=== PATIENT | female | born 1950 | race Caucasian/White ===

== ENCOUNTER 2018-02-03 19:32 | Emergency (ER) | payer MEDICARE, OTHER ==
[~2018-02-03 19:32] MED LIST: ACTO35TA PO; ARIC5TAB PO; ARMO120T PO; CALC-137 PO; COUM2TAB PO; ESTR0.053 TD; ESZO3 PO; FIBECHW2 CHEW; FISH1000 PO; FLUO40CA PO; HYDR5TAB64 OR; IODINE PO; LORA1TAB PO; LORT5TAB PO; MAGN400 OR; PROG1CAP21 PO; SERO100T PO; STOO100C PO; VITA200017 OR; [UNRECOGNIZED DRUG - OTHER] PO
[2018-02-03 19:48] VITALS: BP 123/77; PULSE 94; RESP 16; TEMP 98.6; O2SAT 96
--- NOTE | 2018-02-03 20:06 | PD ---
HPI Chief Complaint: Altered Mental Status Time Seen by Provider: 20:06 Travel History International Travel<30 days: No Contact w/Intl Traveler<30days: No Traveled to known affect area: No History of Present Illness HPI 67-year-old female presents to the emergency department by private transportation the care of family for evaluation of mild altered mentation. No fall or injury. According to daughter who is at the bedside with the patient she has experienced episodes like this before related to either low blood count due to a GI bleed or due to urinary tract infection. Daughter actually noted symptoms yesterday that they were slightly worse today. Patient does complain of some dizziness but denies any black or tarry or bloody stools. Patient does complain of suprapubic pressure and urgency. No noted fever chills. Patient is unable to identify specific exacerbating or alleviating factors. Patient does not report chest pain palpitations shortness of breath referred neck jaw back shoulder arm pain does not report flank pain or hematuria does not report nausea vomiting or diarrhea constipation. Patient does not take a blood thinning agent. Discomfort with urination, 03/02. Patient has had some laryngitis cough congestion sinus drainage and some pill yellow-green sputum. No shortness of breath no wheezing. PFSH Past Medical History Narrative Medical Osteoarthritis anemia hypothyroidism asthma/COPD diminished hearing uterine cancer with hysterectomy bilateral salpingo-oophorectomy appendectomy gastric bypass Miguelina filter tonsillectomy adenoidectomy no tobacco use nursing notes reviewed medical record review Anemia: Yes Arthritis: Yes Asthma: Yes Cancer: Yes (UTERUS) Cardiovascular Problems: Yes Chemotherapy: No COPD: Yes Diminished Hearing: Yes ([place]) Endocrine: Yes Gastrointestinal Disorders: Yes Genitourinary: No Headaches: Yes Hypertension: Yes (HX: RESOLVED GASTRIC BYPASS) Immune Disorder: No Implanted Vascular Access Dvce: Yes Musculoskeletal: Yes Neurologic: Yes Psychiatric: Yes (CLAUSTRAPHOBIA) Reproductive: No Respiratory: Yes Immunizations Current: Yes Radiation Therapy: No Thyroid Disease: Yes Past Surgical History Abdominal Surgery: Yes (GASTRIC BYPASS, APPY) Body Medical Devices: MIGUELINA FILTER Gynecologic Surgery: Yes (TAHBSO) Oral Surgery: Yes (T & A) Other Surgery: Yes (COLON RESECTION) Social History Alcohol Use: No Tobacco Use: No Substance Use: No Allergies-Medications (Allergen,Severity, Reaction): Coded Allergies: clarithromycin (Verified Allergy, Severe, 02/03/18) Reported Meds & Prescriptions Reported Meds & Active Scripts Active Reported Tylenol (Acetaminophen) 325 Mg Tab 325 Mg PO Q6H PRN Memantine 10 Mg Tab 10 Mg PO BID Omeprazole 20 Mg Tab 20 Mg PO DAILY Levothyroxine (Levothyroxine Sodium) 50 Mcg Tab 50 Mcg PO DAILY Fish Oil + D3 (Fish Oil-Cholecalciferol) 1,200-1,000 Mg-Unit Cap 1 Cap PO DAILY Sertraline (Sertraline HCl) 50 Mg Tab 50 Mg PO DAILY Morphine ER (Morphine Sulfate) 15 Mg Tab 15 Mg PO BID Narrative Medication advil Review of Systems Except as stated in HPI: all other systems reviewed are Neg General / Constitutional: No: Fever, Chills HENT: Positive: Congestion, Other (sinus pressure and drainage), No: Sore Throat Cardiovascular: No: Chest Pain or Discomfort, Palpitations, Syncope Respiratory: Positive: Cough ("pale green sputum"), No: Shortness of Breath Gastrointestinal: Positive: Abdominal Pain (suprapubic), No: Nausea, Vomiting, Diarrhea Genitourinary: Positive: Dysuria, No: Hematuria Musculoskeletal: Positive: Other (left humerus fx 5 weeks old), No: Pain Skin: Positive Other (per daughter --resolving buttock 'pressure sore' no ulceration), No Rash Neurologic: Positive: Weakness, Dizziness, Change in Mentation, No: Headache, Slurred Speech Psychiatric: No: Anxiety Endocrine: No: Polyuria Hematologic/Lymphatic: No: Lymph Node Enlargement Physical Exam Narrative GENERAL: Well-developed well-nourished female no acute distress no respiratory distress, mild hoarseness, no stridor. SKIN: Warm and dry. HEAD: Normocephalic. EYES: No scleral icterus. No injection or drainage. No conjunctival pallor. NECK: Supple, trachea midline. No JVD or lymphadenopathy. CARDIOVASCULAR: Regular rate and rhythm without murmurs, gallops, or rubs. RESPIRATORY: Breath sounds equal bilaterally. No accessory muscle use. GASTROINTESTINAL: Abdomen soft, non-tender, no guarding no rebound, nondistended. MUSCULOSKELETAL: No cyanosis, or edema. BACK: Nontender without obvious deformity. No CVA tenderness. Data Data Last Documented VS Vital Signs Date Time Temp Pulse Resp B/P (MAP) Pulse Ox O2 Delivery O2 Flow Rate FiO2 02/03/18 23:20 02/03/18 20:46 98 Room Air 02/03/18 19:48 98.6 94 16 Orders Orders Electrocardiogram (02/03/18 20:06) Complete Blood Count With Diff (02/03/18 20:06) Comprehensive Metabolic Panel (02/03/18 20:06) Prothrombin Time / Inr (Pt) (02/03/18 20:06) Troponin I (02/03/18 20:06) Thyroid Stimulating Hormone (02/03/18 20:06) Urinalysis - C+S If Indicated (02/03/18 20:06) Chest, Single Ap (02/03/18 20:06) Ct Brain W/O Iv Contrast(Rout) (02/03/18 20:06) Blood Glucose (02/03/18 20:06) Ecg Monitoring (02/03/18 20:06) Iv Access Insert/Monitor (02/03/18 20:06) Oximetry (02/03/18 20:06) Sodium Chloride 0.9% Flush (Ns Flush) (02/03/18 20:15) Blood Culture (02/03/18 20:53) Lactic Acid (02/03/18 20:53) Sodium Chlorid 0.9% 500 Ml Inj (Ns 500 M (02/03/18 21:00) Urine Culture (02/03/18 20:14) Ceftriaxone Inj (Rocephin Inj) (02/03/18 21:15) Ed Discharge Order (02/03/18 23:16) Ciprofloxacin (Cipro) (02/03/18 23:30) Labs Laboratory Tests Test 02/03/18 20:14 02/03/18 21:03 White Blood Count 19.7 TH/MM3 Red Blood Count 4.52 MIL/MM3 Hemoglobin 12.6 GM/DL Hematocrit 39.9 % Mean Corpuscular Volume 88.4 FL Mean Corpuscular Hemoglobin 27.8 PG Mean Corpuscular Hemoglobin Concent 31.5 % Red Cell Distribution Width 21.0 % Platelet Count 248 TH/MM3 Mean Platelet Volume 8.5 FL Neutrophils (%) (Auto) 79.7 % Lymphocytes (%) (Auto) 9.8 % Monocytes (%) (Auto) 9.5 % Eosinophils (%) (Auto) 0.4 % Basophils (%) (Auto) 0.6 % Neutrophils # (Auto) 15.7 TH/MM3 Lymphocytes # (Auto) 1.9 TH/MM3 Monocytes # (Auto) 1.9 TH/MM3 Eosinophils # (Auto) 0.1 TH/MM3 Basophils # (Auto) 0.1 TH/MM3 CBC Comment DIFF FINAL Differential Comment Prothrombin Time 11.4 SEC Prothromb Time International Ratio 1.1 RATIO Urine Color YELLOW Urine Turbidity CLEAR Urine pH 6.5 Urine Specific [place] 1.034 Urine Protein 30 mg/dL Urine Glucose (UA) NEG mg/dL Urine Ketones NEG mg/dL Urine Occult Blood SMALL Urine Nitrite NEG Urine Bilirubin NEG Urine Urobilinogen LESS THAN 2.0 MG/DL Urine Leukocyte Esterase SMALL Urine RBC 98 /hpf Urine WBC 5 /hpf Urine Bacteria FEW /hpf Urine Mucus FEW /lpf Microscopic Urinalysis Comment CATH-CULTURE IND Blood Urea Nitrogen 14 MG/DL Creatinine 0.83 MG/DL Random Glucose 67 MG/DL Total Protein 7.0 GM/DL Albumin 3.3 GM/DL Calcium Level 8.8 MG/DL Alkaline Phosphatase 89 U/L Aspartate Amino Transf (AST/SGOT) 56 U/L Alanine Aminotransferase (ALT/SGPT) 45 U/L Total Bilirubin 0.3 MG/DL Sodium Level 138 MEQ/L Potassium Level 3.9 MEQ/L Chloride Level 109 MEQ/L Carbon Dioxide Level 16.1 MEQ/L Anion Gap 13 MEQ/L Estimat Glomerular Filtration Rate 69 ML/MIN Troponin I LESS THAN 0.02 NG/ML Thyroid Stimulating Hormone 3rd Gen 0.195 uIU/ML Lactic Acid Level 0.7 mmol/L MDM Medical Decision Making Medical Screen Exam Complete: Yes Emergency Medical Condition: Yes Medical Record Reviewed: Yes Interpretation(s) UA: few bacteria, positive WBC's; positive leuk esterase =cx indicated EKG: Normal sinus rhythm rate 85 left axis deviation no acute ST elevation nonspecific ST-T changes noted Last Impressions Head CT 02/03/182005 Signed Impressions: CONCLUSION: 1. No acute findings. Chest X-Ray 02/03/182005 Signed Impressions: CONCLUSION: Negative examination. CBC & BMP Diagram 02/03/18 20:14 Total Protein 7.0, Albumin 3.3 L, Calcium Level 8.8, Alkaline Phosphatase 89, Aspartate Amino Transf (AST/SGOT) 56 H, Alanine Aminotransferase (ALT/SGPT) 45, Total Bilirubin 0.3 Vital Signs Date Time Temp Pulse Resp B/P (MAP) Pulse Ox O2 Delivery O2 Flow Rate FiO2 02/03/18 23:20 02/03/18 20:46 98 Room Air 02/03/18 19:48 98.6 94 16 123/77 (92) 96 Room Air LACTIC ACID: 0.7, not elevated Differential Diagnosis AMS, anemia, UTI, URI, bronchitis, sinusitis, pneumonia, sepsis Narrative Course Patient placed on monitor technician with continuous pulse oximetry IV access obtained specimens collected and sent for resulting patient able to ambulate with her daughter with minimal assistance to the bathroom to provide urine specimen CT brain noncontrast reveals no acute process; chest x-ray no lobar infiltrate or acute process per reading radiologist Urinalysis appears to be mildly abnormal with few bacteria positive WBCs and leukocyte esterase culture is indicated; patient administered Rocephin 1 g IV piggyback after obtaining blood cultures and lactic acid; white cell count elevated 19,700 with left shift Chemistries pending Chemistries remarkable for mild hypoglycemia at 67 patient given twin crackers and orange juice Cardiac enzymes found to be in normal range Patient reports that she feels well daughter states that she is essentially back to her baseline both are aware that she has a white count of 19,000 patient reports she has had white count this high before when she has had a urinary tract infection; white count is disproportionately elevated relative to the urinalysis findings however patient was given oral antibiotic today by her daughter this morning which may have contributed somewhat to the findings on urinalysis. Culture is pending. Patient is stable for outpatient management at this time as a desire to go home and she has access to a primary care provider. Patient has had a dose of Cipro this morning a gram of Rocephin in the emergency department she will have a dose of Cipro by mouth before she leaves will be given prescription for Cipro to go home with. Daughter is encouraged to watch her closely should she have any change or develop fever she will need to return to the emergency department issue will may require hospitalization for ongoing management and IV antibiotics. Lactic acid is 0.7, not elevated. Patient does not meet sepsis criterion at this time but again wants to be discharged to home. Sepsis Criteria SIRS Criteria (2 or more): Heart rate over 90, WBC > 21875, < 4000 or > 10% bands Sepsis Criteria (SIRS+source): Infect source susp/known (uti, sinusitis) Diagnosis Primary Impression: UTI (urinary tract infection) Additional Impressions: Leukocytosis Sinusitis Referrals: Primary Care Physician 2 days Patient Instructions: General Instructions Med/Other Pt SpecificInfo: Prescription(s) given Scripts Ciprofloxacin (Cipro) 500 Mg Tab 500 MG PO BID for Infection for 7 Days, #14 TAB 0 Refills Prov: Lashawn Woodruff MD 02/03/18 Disposition: 01 DISCHARGE HOME Condition: Stable Lashawn Woodruff MD Feb 03, 2018 20:06
[2018-02-03] MEDS ORDERED: SODIUM CHLORIDE 0.9% FLUSH 10 ML FLUSH IV FLUSH PRN (20:15)
[2018-02-03] MEDS ORDERED: MORP1TAB24 PO ×2 (20:19)
[2018-02-03] MEDS ORDERED: FISHCAP4 PO (20:20)
[2018-02-03] MEDS ORDERED: SERT-132 PO (20:20)
[2018-02-03] MEDS ORDERED: LEVO50TA4 PO (20:20)
[2018-02-03] MEDS ORDERED: TYLE325T PO (20:21)
[2018-02-03] MEDS ORDERED: MEMA1TAB2 PO (20:21)
[2018-02-03] MEDS ORDERED: OMEP20TA93 PO (20:21)
--- NOTE | 2018-02-03 20:36 | RADRPT ---
EXAM DATE: 02/03/2018 8:31 PM EDT AGE/SEX: 67 years / Female INDICATIONS: Altered mental status dizzy CLINICAL DATA: This is the patient's initial encounter. Patient reports that signs and symptoms have been present for 1 day and indicates a pain score of 0/10. MEDICAL/SURGICAL HISTORY: Hypertension. None. RADIATION DOSE: 38.47 CTDI (mGy) COMPARISON: No prior exams available for comparison. TECHNIQUE: CT of the head without contrast. Using automated exposure control and adjustment of the mA and/or kV according to patient size, radiation dose was kept as low as reasonably achievable to ob tain optimal diagnostic quality images. FINDINGS: Ventricles are symmetric and normal. Incidental cavum septum pellucid 8. No evidence of intracranial mass or hemorrhage. Nothing to suggest acute infarction. Extracranial structures are benign and intac t. CONCLUSION: 1. No acute findings. Electronically signed by: Denilson Falcon MD 02/03/2018 8:35 PM EDT
--- NOTE | 2018-02-03 20:39 | RADRPT ---
EXAM DATE: 02/03/2018 8:36 PM EDT AGE/SEX: 67 years / Female INDICATIONS: Cough. CLINICAL DATA: This is the patient's initial encounter. Patient reports that signs and symptoms have been present for 1 week and indicates a pain score of 0/10. MEDICAL/SURGICAL HISTORY: Chronic obstructive pulmonary disease. None. COMPARISON: No prior exams available for comparison. FINDINGS: A single AP view of the chest demonstrates the lungs to be symmetrically aerated without evidence of mass, infiltrate or effusion. The cardiomediastinal contours are unremarkable. Osseous structures a re intact. CONCLUSION: Negative examination. Electronically signed by: Denilson Falcon MD 02/03/2018 8:37 PM EDT
[2018-02-03 20:44] LABS: AUTOMATED NEUTROPHIL # 15.7 TH/MM3 (1.8-7.7); BASOPHIL # 0.1 TH/MM3 (0-0.2); BASOPHIL % 0.6 % (0.0-2.0); EOSINOPHIL # 0.1 TH/MM3 (0-0.4); EOSINOPHIL % 0.4 % (0.0-4.0); HEMATOCRIT 39.9 % (35.0-46.0); HEMOGLOBIN 12.6 GM/DL (11.6-15.3); LYMPH % 9.8 % (9.0-44.0); LYMPHOCYTE # 1.9 TH/MM3 (1.0-4.8); MEAN CELL VOLUME 88.4 FL (80.0-100.0); MEAN CORPUSCULAR HEMOGLOBIN 27.8 PG (27.0-34.0); MEAN CORPUSCULAR HGB CONC 31.5 % (32.0-36.0); MEAN PLATELET VOLUME 8.5 FL (7.0-11.0); MONO % 9.5 % (0.0-8.0); MONOCYTE # 1.9 TH/MM3 (0-0.9); NEUT % 79.7 % (16.0-70.0); PLATELET COUNT 248 TH/MM3 (150-450); RED BLOOD COUNT 4.52 MIL/MM3 (4.00-5.30); WHITE BLOOD COUNT 19.7 TH/MM3 (4.0-11.0)
[2018-02-03 20:46] VITALS: O2SAT 98
[2018-02-03 20:51] LABS: INTERNATIONAL NORMALIZED RATIO 1.1 RATIO; PROTHROMBIN TIME - PATIENT 11.4 SEC (9.8-11.6)
[2018-02-03 20:59] LABS: BACTERIA, URINE FEW /hpf; BILIRUBIN, URINE NEG (NEG); BLOOD, URINE SMALL (NEG); GLUCOSE,URINE NEG (NEG); KETONE, URINE NEG (NEG); MUCUS URINE FEW /lpf (OCC); NITRITE,URINE NEG (NEG); PH, URINE 6.5 (5.0-8.5); URINE COLOR YELLOW (YELLW/STRAW); URINE LEUKOCYTE ESTERASE SMALL (NEG)
[2018-02-03] MEDS ORDERED: SODIUM CHLORID 0.9% 500 ML INJ 500 ML IV ONE (21:00)
[2018-02-03 21:03] LABS: ALT (GPT) 45 U/L (10-53)
[2018-02-03 21:12] LABS: ALKALINE PHOSPHATASE 89 U/L (45-117); TOTAL BILIRUBIN ADULT 0.3 MG/DL (0.2-1.0); TROPONIN I LESS THAN 0.02 NG/ML (0.02-0.05)
[2018-02-03] MEDS ORDERED: cefTRIAXone INJ 1,000 MG in SODIUM CHLORIDE 0.9% INJ 100 ML IV ONE (21:15)
[2018-02-03 21:16] LABS: ALBUMIN 3.3 GM/DL (3.4-5.0); AST (GOT) 56 U/L (15-37); BICARBONATE 16.1 MEQ/L (21.0-32.0); BLOOD UREA NITROGEN 14 MG/DL (7-18); CALCIUM 8.8 MG/DL (8.5-10.1); CHLORIDE 109 MEQ/L (98-107); CREATININE 0.83 MG/DL (0.50-1.00); GLOMERULAR FILTRATION RATE 69 ML/MIN (>89); GLUCOSE,RANDOM 67 MG/DL (74-106); SODIUM (NA) 138 MEQ/L (136-145)
[2018-02-03 23:28] VITALS: BP 109/59; PULSE 77; RESP 12; TEMP 99; O2SAT 95
[2018-02-03] MEDS ORDERED: CIPR-9 PO (23:29)
[2018-02-03] MEDS ORDERED: CIPROFLOXACIN 250 MG TAB PO ONE (23:30)
[2018-02-03] MEDS ORDERED: ACETAMINOPHEN 325 MG TAB PO ONE (23:30)
--- NOTE | 2018-02-04 18:13 | EKG ---
Date Performed: 02/03/2018 Time Performed: 20:36:01 PTAGE: 67 years EKG: Sinus rhythm MARKED LEFT AXIS DEVIATION LOW QRS VOLTAGE IN PRECORDIAL LEADS MODERATE VOLTAGE CRITERIA FOR LVH, CO NSIDER NORMAL VARIANT NONSPECIFIC T-WAVE ABNORMALITY ABNORMAL ECG NO PREVIOUS TRACING DOCTOR: Alicia Kumar Interpretating Date/Time 02/04/2018 18:11:11
== END 2018-02-03 23:39 | disposition home or self-care (01) ==
LOC: NEPC 19:32
DX: N39.0 Urinary tract infection, site not specified (principal); D72.829 Elevated white blood cell count, unspecified; J32.9 Chronic sinusitis, unspecified; E16.2 Hypoglycemia, unspecified; R94.31 Abnormal electrocardiogram [ECG] [EKG]; R05 Cough; M19.90 Unspecified osteoarthritis, unspecified site; D64.9 Anemia, unspecified; E03.9 Hypothyroidism, unspecified; J44.9 Chronic obstructive pulmonary disease, unspecified; Z85.42 Personal history of malignant neoplasm of other parts of uterus; Z98.84 Bariatric surgery status; Z88.1 Allergy status to other antibiotic agents; Z79.899 Other long term (current) drug therapy
CPT/HCPCS: 70450; 71045; 80053; 81001; 83605; 84443; 84484; 85025; 85610; 87040; 87086; 93005; 96374; 99285; J0696; J7040

== ENCOUNTER 2018-03-19 13:38 | Observation (INO) ==
[2018-03-19] MEDS ORDERED: Sod Chloride 0.9% Inj 800 ML IV.SIG SCH (14:30)
[2018-03-19] MEDS ORDERED: Sod Chloride 0.9% Inj 1,000 ML IV.SIG SCH (14:30)
[2018-03-19 14:41] LABS: Baso % (Auto) 0.5 % (0.0-2.0); Eos # (Auto) 0.7 th/mm3 (0.0-0.4); Eos % (Auto) 8.4 % (0.0-4.0); Hematocrit 42.7 % (35.0-46.0); Hemoglobin 13.6 gm/dL (11.6-15.3); Lymph # (Auto) 1.3 th/mm3 (1.0-4.8); Lymph % (Auto) 14.8 % (9.0-44.0); Mean Corpuscular HGB Conc 31.9 % (32.0-36.0); Mean Corpuscular Hemoglobin 29.4 pg (27.0-34.0); Mean Corpuscular Volume 92.2 fL (80.0-100.0); Mono # (Auto) 1.2 th/mm3 (0.0-0.9); Mono % (Auto) 13.5 % (0.0-8.0); Neut # (Auto) 5.4 th/mm3 (1.8-7.7); Neut % (Auto) 62.8 % (16.0-70.0); Platelet Count 203 th/mm3 (150-450); Red Blood Count 4.63 mil/mm3 (4.00-5.30); Red Cell Distribution Width 17.6 % (11.6-17.2); White Blood Count 8.6 th/mm3 (4.0-11.0)
[2018-03-19 15:01] LABS: Alkaline Phosphatase 77 U/L (45-117); Total Protein 6.5 g/dL (6.4-8.2)
[2018-03-19 15:04] LABS: Alanine Aminotransferase 38 U/L (10-53); Anion Gap 8 meq/L (5-15); Aspartate Aminotransferase 30 U/L (15-37); Blood Urea Nitrogen 16 mg/dL (7-18); Calcium 9.1 mg/dL (8.5-10.1); Carbon Dioxide 23.7 meq/L (21.0-32.0); Chloride 114 meq/L (98-107); Glomerular Filtration Rate 45 mL/min (>89); Glucose,Random 89 mg/dL (74-106); Potassium 3.3 meq/L (3.5-5.1); Sodium 146 meq/L (136-145)
--- NOTE | 2018-03-19 15:05 | XR ---
EXAM DATE: 03/19/2018 3:03 PM EDT AGE/SEX: 67 years / Female INDICATIONS: Shortness of breath. CLINICAL DATA: This is the patient's initial encounter. Patient reports that signs and symptoms have been present for 1 day and indicates a pain score of 0/10. MEDICAL/SURGICAL HISTORY: . Chronic obstructive pulmonary disease. None. COMPARISON: [facility], CHEST SINGLE AP, 02/03/2018. . FINDINGS: A single AP view of the chest demonstrates the lungs to be symmetrically aerated without evidence of mass, infiltrate or effusion. The cardiomediastinal contours are unremarkable. Osseous structures a re intact. The patient is mildly rotated to the left. There are overlying electrocardiogram leads. CONCLUSION: No acute cardiopulmonary disease. Electronically signed by: Javon Reis MD 03/19/2018 3:03 PM EDT
[2018-03-19 15:09] LABS: Bilirubin,Urine Negative (Negative); Clarity,Urine Clear (Clear); Color,Urine Yellow (Yellw/Straw); Glucose,Urine (UA) Negative (Negative); Hyaline Casts,Urine 4 /lpf (0-3); Leukocyte Esterase,Urine Negative (Negative); Mucus,Urine Few /lpf (Occasional); Nitrite,Urine Negative (Negative); Specific Gravity,Urine 1.012 (1.002-1.035)
--- NOTE | 2018-03-19 16:01 | CT ---
EXAM DATE: 03/19/2018 3:55 PM EDT AGE/SEX: 67 years / Female INDICATIONS: Unsteady on feet with altered mental status. CLINICAL DATA: This is the patient's initial encounter. Patient reports that signs and symptoms have been present for 1 day and indicates a pain score of 0/10. MEDICAL/SURGICAL HISTORY: None. None. RADIATION DOSE: 56.35 CTDI (mGy) COMPARISON: [facility] [place] BRAIN [place]/O [place], 02/03/2018. . TECHNIQUE: CT of the head without contrast. Using automated exposure control and adjustment of the mA and/or kV according to patient size, radiation dose was kept as low as reasonably achievable to ob tain optimal diagnostic quality images. DICOM format image data is available electronically for revi ew and comparison. FINDINGS: Cerebrum: The ventricles are normal for age. No evidence of midline shift, mass lesion, hemorrhage or acute infarction. No extraaxial fluid collections are seen. Minimal subcortical white matter smal l vessel ischemic changes. Cavum septum pellucidum and cavum vergae are noted. Posterior Fossa: The cerebellum and brainstem are intact. The 4th ventricle is midline. The cerebe llopontine angle is unremarkable. Extracranial: The visualized portion of the orbits is intact. Skull: The calvaria is intact. No evidence of skull fracture. CONCLUSION: 1. Minimal subcortical white matter small vessel ischemic changes. 2. No acute infarct, acute hemorrhage, midline shift or extra axial fluid collections. . Electronically signed by: Faisal Russell MD 03/19/2018 4:00 PM EDT
[2018-03-19] MEDS ORDERED: Bisacodyl 10 MG Supp RECTAL PRN (18:44)
[2018-03-19] MEDS ORDERED: Sod Chloride 0.9% Inj 1,000 ML IV.CONT SCH (19:00)
--- NOTE | 2018-03-19 19:19 | ED ---
HPI General Chief complaint: Weakness Stated complaint: medical complaint Time Seen by Provider: 03/19/18 14:13 Source: patient, family, RN notes reviewed and old records reviewed Mode of arrival: EMS Limitations: altered mental status History of Present Illness HPI narrative: The patient is a 67-year-old female with past medical history significant for recurrent UTIs and altered mentation when she does have an infection that was brought in by her daughter who stated that she has been feeling unsteady and had a fall a few days ago and has been altered since then. She has past medical history significant with GI bleed. Onset (ago): day(s) (4) Associated symptoms: confusion and weakness Related Data Home Medications Medication Instructions Recorded Confirmed levothyroxine 125 mcg PO DAILY 03/19/18 03/19/18 memantine 03/19/18 morphine [MorphaBond ER] 03/19/18 omeprazole 20 mg PO DAILY 03/19/18 03/19/18 sertraline 100 mg PO DAILY 03/19/18 03/19/18 sucralfate 75 mg PO BID 03/19/18 03/19/18 temazepam 03/19/18 Allergies Allergy/AdvReac Type Severity Reaction Status Date / Time clarithromycin Allergy Severe Rash Verified 03/19/18 13:49 Review of Systems ROS Unobtainable unobtainable due to mental condition PMFSH Social History Social History Smoking Status: Former smoker Tobacco Type: Cigarettes How Often Do You Have a Drink Containing Alcohol: Never Recent Travel in [facility] within the Last 8 Weeks: No Recent Out of Country Travel within the Last 8 Weeks: No Immunization History Tetanus Immunization: Unsure Exam Narrative Exam Narrative: GENERAL: Alert in no distress confused response to questions. SKIN: Dry scaly skin with poor turgor She does have stage I pressure ulcer on the left buttock area HEAD: Atraumatic. Normocephalic. EYES: Pupils equal and round. No scleral icterus. No injection or drainage. ENT: No nasal bleeding or discharge. Mucous membranes pink and moist. NECK: Trachea midline. No JVD. CARDIOVASCULAR: Regular rate and rhythm. No murmur appreciated. RESPIRATORY: No accessory muscle use. Clear to auscultation. Breath sounds equal bilaterally. GASTROINTESTINAL: Abdomen soft, non-tender, nondistended. Hepatic and splenic margins not palpable. MUSCULOSKELETAL: No obvious deformities. No clubbing. No cyanosis. No edema. NEUROLOGICAL: Awake and alert. No obvious cranial nerve deficits. Motor grossly within normal limits. Normal speech. PSYCHIATRIC: Appropriate mood and affect; insight and judgment normal. Course Hospital Course: Patient improved markedly with IV hydration. She did receive cefepime IV initially due to presumptive urosepsis however he does not appear that she has a urinary tract infection. She does not have lactic acidosis and her white count is within normal limits. Kidney function is intact. Head CT was obtained and it was negative. She does not have any focal neurologic deficits. On reassessment she appeared to be more alert and oriented able to communicate and family reported that she was at baseline Reevaluation(s) Reevaluation #1: Fluids are infusing antibiotics have been started patient is more alert and oriented able to respond to questions. Time: 15:51 Initial Documented Vital Signs Temperature 99.0 F 03/19/18 13:43 Pulse Rate 89 03/19/18 13:43 Respiratory Rate 16 03/19/18 13:43 Blood Pressure 106/61 03/19/18 13:43 Pulse Oximetry 98 03/19/18 13:43 Last Documented Vital Signs Temperature 98.6 F 03/19/18 14:18 Pulse Rate 75 03/19/18 14:18 Respiratory Rate 16 03/19/18 14:18 Blood Pressure 117/68 03/19/18 14:18 Pulse Oximetry 100 03/19/18 14:38 Medical Decision Making MDM Narrative Medical decision making narrative: Patient did receive antibiotics and fluids per sepsis protocol on arrival however does not appear that she has an infection at this time her mentation did improve markedly. She has a negative CT head. After discussing with daughter it appears that she takes morphine 50 mg p.o. daily for pain however on arrival she did not have any pinpoint pupils was not in respiratory depression and was easily arousable. Did not appear lethargic. We will obtain a UDS per admitting physician request and that will be following the results. Lab Data Lab results reviewed: Yes I reviewed the patient's lab results. Result diagrams: 03/19/18 14:30 03/19/18 14:30 Lab Results 03/19/18 03/19/18 03/19/18 Range/Units 14:30 14:30 14:30 WBC 8.6 (4.0-11.0) th/mm3 RBC 4.63 (4.00-5.30) mil/mm3 Hgb 13.6 (11.6-15.3) gm/dL Hct 42.7 (35.0-46.0) % MCV 92.2 (80.0-100.0) fL MCH 29.4 (27.0-34.0) pg MCHC 31.9 L (32.0-36.0) % RDW 17.6 H (11.6-17.2) % Plt Count 203 (150-450) th/mm3 MPV 8.0 (7.0-11.0) fL Neut % (Auto) 62.8 (16.0-70.0) % Lymph % (Auto) 14.8 (9.0-44.0) % [place] % (Auto) 13.5 H (0.0-8.0) % Eos % (Auto) 8.4 H (0.0-4.0) % Baso % (Auto) 0.5 (0.0-2.0) % Neut # (Auto) 5.4 (1.8-7.7) th/mm3 Lymph # (Auto) 1.3 (1.0-4.8) th/mm3 [place] # (Auto) 1.2 H (0.0-0.9) th/mm3 Eos # (Auto) 0.7 H (0.0-0.4) th/mm3 Baso # (Auto) 0.0 (0.0-0.2) th/mm3 WBC Differential . Differential Comment Auto diff final Sodium 146 H (136-145) meq/L Potassium 3.3 L (3.5-5.1) meq/L Chloride 114 H (98-107) meq/L Carbon Dioxide 23.7 (21.0-32.0) meq/L Anion Gap 8 (5-15) meq/L BUN 16 (7-18) mg/dL Creatinine 1.19 H (0.50-1.00) mg/dL Estimated GFR 45 L (>89) mL/min POC Glucose (68-110) mg/dl Random Glucose 89 (74-106) mg/dL Lactic Acid 0.8 (0.4-2.0) mmol/L Calcium 9.1 (8.5-10.1) mg/dL Total Bilirubin 0.4 (0.2-1.0) mg/dL AST 30 (15-37) U/L ALT 38 (10-53) U/L Alkaline Phosphatase 77 (45-117) U/L Troponin I Less than 0.02 L (0.02-0.05) ng/mL Total Protein 6.5 (6.4-8.2) g/dL Albumin 3.0 L (3.4-5.0) g/dL Urine Color (Yellw/Straw) Urine Clarity (Clear) Urine pH (5.0-8.5) Ur Specific [place] (1.002-1.035) Urine Protein (Neg-Trace) mg/dL Urine Glucose (UA) (Negative) mg/dL Urine Ketones (Negative) mg/dL Urine Occult Blood (Negative) Urine Nitrate (Negative) Urine Bilirubin (Negative) Urine Urobilinogen (Less than 2) mg/dL Ur Leukocyte Esterase (Negative) Urine RBC (0-3) /hpf Urine WBC (0-5) /hpf Hyaline Casts (0-3) /lpf Urine Mucus (Occasional) /lpf Micro UA Comment Urine Culture Comments 03/19/18 03/19/18 Range/Units 14:37 14:50 WBC (4.0-11.0) th/mm3 RBC (4.00-5.30) mil/mm3 Hgb (11.6-15.3) gm/dL Hct (35.0-46.0) % MCV (80.0-100.0) fL MCH (27.0-34.0) pg MCHC (32.0-36.0) % RDW (11.6-17.2) % Plt Count (150-450) th/mm3 MPV (7.0-11.0) fL Neut % (Auto) (16.0-70.0) % Lymph % (Auto) (9.0-44.0) % [place] % (Auto) (0.0-8.0) % Eos % (Auto) (0.0-4.0) % Baso % (Auto) (0.0-2.0) % Neut # (Auto) (1.8-7.7) th/mm3 Lymph # (Auto) (1.0-4.8) th/mm3 [place] # (Auto) (0.0-0.9) th/mm3 Eos # (Auto) (0.0-0.4) th/mm3 Baso # (Auto) (0.0-0.2) th/mm3 WBC Differential Differential Comment Sodium (136-145) meq/L Potassium (3.5-5.1) meq/L Chloride (98-107) meq/L Carbon Dioxide (21.0-32.0) meq/L Anion Gap (5-15) meq/L BUN (7-18) mg/dL Creatinine (0.50-1.00) mg/dL Estimated GFR (>89) mL/min POC Glucose 88 (68-110) mg/dl Random Glucose (74-106) mg/dL Lactic Acid (0.4-2.0) mmol/L Calcium (8.5-10.1) mg/dL Total Bilirubin (0.2-1.0) mg/dL AST (15-37) U/L ALT (10-53) U/L Alkaline Phosphatase (45-117) U/L Troponin I (0.02-0.05) ng/mL Total Protein (6.4-8.2) g/dL Albumin (3.4-5.0) g/dL Urine Color Yellow (Yellw/Straw) Urine Clarity Clear (Clear) Urine pH 6.0 (5.0-8.5) Ur Specific [place] 1.012 (1.002-1.035) Urine Protein 30 H (Neg-Trace) mg/dL Urine Glucose (UA) Negative (Negative) mg/dL Urine Ketones Negative (Negative) mg/dL Urine Occult Blood Small H (Negative) Urine Nitrate Negative (Negative) Urine Bilirubin Negative (Negative) Urine Urobilinogen Less than 2 (Less than 2) mg/dL Ur Leukocyte Esterase Negative (Negative) Urine RBC 2 (0-3) /hpf Urine WBC 3 (0-5) /hpf Hyaline Casts 4 (0-3) /lpf Urine Mucus Few H (Occasional) /lpf Micro UA Comment Cath-culture not ind Urine Culture Comments Cath-cult not ind Imaging Data Radiologist's impression: Chest X-Ray 03/19/18 14:25 CONCLUSION: No acute cardiopulmonary disease. Head CT 03/19/18 15:24 CONCLUSION: 1. Minimal subcortical white matter small vessel ischemic changes. 2. No acute infarct, acute hemorrhage, midline shift or extra axial fluid collections. . ECG Data Attestation: I personally reviewed and interpreted this ECG as follows: Interpretation: Sinus rhythm with a ventricular rate of 67 bpm left axis deviation QRS 96 ms WA interval [address]-T wave abnormalities low voltage QRS in precordial leads. No signs of acute ischemia first-degree AV block Discharge Plan Discharge Disposition Patient Disposition: 30 Still Patient Discharge Condition Condition: Good Discharge Details Diagnosis: Acute alteration in mental status, Dehydration Physicians Team ED Provider: Mitchell Hwang Primary Care Provider: UNKNOWN, Attending Provider: Marcus Joya Discharge Interventions Interventions: Vital Signs Last Done: 03/19/18 14:18 Status ED Status: Admitted Observation Patient
--- NOTE | 2018-03-19 21:25 | P.HPIM ---
History of Present Illness Primary Care Physician: UNKNOWN History of Present Illness: This is a 67-year-old female with a PMH of Chronic Back Pain and Recurrent UTI who was brought to the ER by Daughter secondary to gait instability and intermittent dizziness. Daughter stated pt usually has had previous episodes of AMS w/ gait instability due to UTI. On arrival, pt noted to be slightly confuse, not answering questions appropriately, currently normal mental status. Per patient, she's had worsening gait w/ multiple falls in the last 4 months. Denies head trauma or LOC. Today states she "stumbled on my feet" and had near fall. 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 On arrival, BP 117/68, HR 75, O2 sat 96% on RA, Afebrile. CBC essentially unremarkable. K+ 3.3. Creatinine 1.19, previously 0.83 on 02/03. UA negative for UTI. CXR with no acute findings. CT Head with no acute infarct, minimal subcortical white small vessel ischemic changes. - Diagnosis (1) Encephalopathy (2) Gait instability (3) Renal insufficiency Review of Systems All other systems reviewed negative except as stated in HPI PMFSH - History History Provided By: Patient - Tobacco History Tobacco Use In Past 30 Days: No Smoking Status: Former smoker Tobacco Type: Cigarettes - Alcohol History How Often Do You Have a Drink Containing Alcohol: Never - Travel History Recent Travel in the [place] Within the Last 8 Weeks: No Recent Travel Out of the Country Within the Last 8 Weeks: No - Immunization History Tetanus Immunization: Unsure Medications and Allergies Active Medications: Active Medications Al Hydroxide/Mg Hydroxide (Milk Of Magnesia Liq) 30 ml PO Q12H PRN PRN Reason: Mild Constipation Bisacodyl (Dulcolax Supp) 10 mg RECTAL DAILY PRN PRN Reason: SEVERE CONSITIPATION Sodium Chloride (Ns Inj) 1,000 mls @ 100 mls/hr IV.CONT .Q10H CARITO Lactulose (Lactulose Liq) 30 ml PO DAILY PRN PRN Reason: SEVERE CONSITIPATION Sennosides (Senokot) 17.2 mg PO Q12H PRN PRN Reason: Moderate Constipation Allergies Allergy/AdvReac Type Severity Reaction Status Date / Time clarithromycin Allergy Severe Rash Verified 03/19/18 13:49 Home Medications Medication Instructions Recorded Confirmed Type levothyroxine 125 mcg PO DAILY 03/19/18 03/19/18 History memantine 03/19/18 History morphine [MorphaBond ER] 03/19/18 History omeprazole 20 mg PO DAILY 03/19/18 03/19/18 History sertraline 100 mg PO DAILY 03/19/18 03/19/18 History sucralfate 75 mg PO BID 03/19/18 03/19/18 History temazepam 03/19/18 History Exam Vital signs: Vital Signs 03/19/18 13:43 03/19/18 14:18 03/19/18 14:38 Temperature 99.0 F 98.6 F Pulse Rate 89 75 Respiratory Rate 16 16 Blood Pressure 106/61 117/68 Pulse Oximetry 98 96 100 Intake & Output 03/19/18 03/19/18 03/20/18 06:59 18:59 06:59 Intake Total 1100 / 1100 Balance 1100 / 1100 Weight 54.431 kg Intake: IV 1100 / 1100 Maxipime Inj 2,000 MG In NS Inj 100 / 100 100 ML @ 200 mls/hr IV.SIG STAT STA Rx#:[id number] NS Inj 1,000 ML @ Wide Open IV. 1000 / 1000 SIG .Q0M CARITO Rx#:[id number] Narrative: PE: GENERAL: Middle-aged white female in no acute distress. HEENT: PERRLA, EOMI. No scleral icterus or conjunctival pallor. No lid lag or facial droop. CARDIOVASCULAR: Regular rate and rhythm. No obvious murmurs to auscultation. No chest tenderness to palpation. RESPIRATORY: No obvious rhonchi or wheezing. Clear to auscultation. Breath sounds equal bilaterally. GASTROINTESTINAL: Abdomen soft, non-tender, nondistended. BS normal. MUSCULOSKELETAL: Extremities without clubbing, cyanosis, or edema. No obvious deformities. NEUROLOGICAL: Awake, alert and oriented x4. No focal neurologic deficits. Moving both upper and lower extremities spontaneously. Results - Labs CBC & Chem 7: 03/19/18 14:30 03/19/18 14:30 Labs: Short CBC 03/19/18 Range/Units 14:30 WBC 8.6 (4.0-11.0) th/mm3 Hgb 13.6 (11.6-15.3) gm/dL Hct 42.7 (35.0-46.0) % Plt Count 203 (150-450) th/mm3 BMP 03/19/18 14:30 Sodium 146 H Potassium 3.3 L Chloride 114 H Carbon Dioxide 23.7 BUN 16 Creatinine 1.19 H Calcium 9.1 Cardiac Enzymes 03/19/18 Range/Units 14:30 Troponin I Less than 0.02 L (0.02-0.05) ng/mL Liver Function 03/19/18 Range/Units 14:30 Total Bilirubin 0.4 (0.2-1.0) mg/dL AST 30 (15-37) U/L ALT 38 (10-53) U/L Alkaline Phosphatase 77 (45-117) U/L Albumin 3.0 L (3.4-5.0) g/dL Urine 03/19/18 Range/Units 14:50 Urine Color Yellow (Yellw/Straw) Urine Clarity Clear (Clear) Urine pH 6.0 (5.0-8.5) Ur Specific [place] 1.012 (1.002-1.035) Urine Protein 30 H (Neg-Trace) mg/dL Urine Glucose (UA) Negative (Negative) mg/dL - Imaging Impressions Chest X-Ray 03/19/18 14:25 CONCLUSION: No acute cardiopulmonary disease. Head CT 03/19/18 15:24 CONCLUSION: 1. Minimal subcortical white matter small vessel ischemic changes. 2. No acute infarct, acute hemorrhage, midline shift or extra axial fluid collections. . Caprini VTE Risk Assessment Caprini VTE Risk Assessment: No/Low Risk (score <= 1) Caprini Risk Assessment Model: Point Value = 1 Point Value = 2 Point Value = 3 Point Value = 5 Age 41-60 Minor surgery BMI > 25 kg/m2 Swollen legs Varicose veins or History of unexplained or recurrent spontaneous Oral contraceptives or hormone replacement Sepsis (< 1 month) Serious lung disease, including pneumonia (< 1 month) Abnormal pulmonary function Acute myocardial infarction Congestive heart failure (< 1 month) History of inflammatory bowel disease Medical patient at bed rest Age 61-74 Arthroscopic surgery Major open surgery (> 45 min) Laparoscopic surgery (> 45 min) Malignancy Confined to bed (> 72 hours) Immobilizing plaster cast Central venous access Age >= 75 History of VTE Family history of VTE Factor V Leiden Prothrombin [id number] Lupus anticoagulant Anticardiolipin antibodies Elevated serum homocysteine Heparin-induced thrombocytopenia Other congenital or acquired thrombophilia Stroke (< 1 month) Elective arthroplasty Hip, pelvis, or leg fracture Acute spinal cord injury (< 1 month) Prophylaxis Regimen: Total Risk Factor Score Risk Level Prophylaxis Regimen 0-1 Low Early ambulation 2 Moderate Order ONE of the following: *Sequential Compression Device (SCD) *Heparin 5000 units SQ BID 3-4 Higher Order ONE of the following medications: *Heparin 5000 units SQ TID *Enoxaparin/Lovenox 40 mg SQ daily (WT < 150 kg, CrCl > 30 mL/min) *Enoxaparin/Lovenox 30 mg SQ daily (WT < 150 kg, CrCl > 10-29 mL/min) *Enoxaparin/Lovenox 30 mg SQ BID (WT < 150 kg, CrCl > 30 mL/min) AND/OR *Sequential Compression Device (SCD) 5 or more Highest Order ONE of the following medications: *Heparin 5000 units SQ TID (Preferred with Epidurals) *Enoxaparin/Lovenox 40 mg SQ daily (WT < 150 kg, CrCl > 30 mL/min) *Enoxaparin/Lovenox 30 mg SQ daily (WT < 150 kg, CrCl > 10-29 mL/min) *Enoxaparin/Lovenox 30 mg SQ BID (WT < 150 kg, CrCl > 30 mL/min) AND *Sequential Compression Device (SCD) Assessment and Plan - Assessment (1) Encephalopathy Code(s): G93.40 - Encephalopathy, unspecified Status: Acute (2) Gait instability Code(s): R26.81 - Unsteadiness on feet Status: Acute (3) Renal insufficiency Code(s): N28.9 - Disorder of kidney and ureter, unspecified Status: Acute - Plan A/P: 1. Encephalopathy: Transient. Resolved. H/o UTI w/ AMS, however no evidence of UTI. Possibly due to polypharmacy from multiple medications including Morphin 15mg ER, Sertraline and Temazepam, will hold meds for now. 2. Gait Instability: w/ recurrent falls, notes she "stumbles" on her feet, denies motor weakness. CT Head w/ no acute findings, images reviewed by me. Check B12/Folate, TSH, Hgb A1c. PT for eval/tx. Check MRI Brain to eval for possible stroke/lesion. Consult Neurology for further evaluation. 3. Renal Insufficiency: TY. Creatinine 1.19, previously 0.83 on 02/03/18. U/ a negative for UTI. IVF for hydration, repeat labs in am, monitor I/O. 4. DVT Prophylaxis: SCD/Teds 5. Social work for d/c planning as needed 6. Case discussed w/ ER physician at length, labs/records/imaging reviewed by me.
[2018-03-19] MEDS: Sod Chloride 0.9% Inj 1,000 ML IV.CONT SCH (21:40)
--- NOTE | 2018-03-19 22:16 | MR ---
EXAM DATE: 03/19/2018 9:10 PM EDT AGE/SEX: 67 years / Female INDICATIONS: Frequent falls. Abnormal gait. CLINICAL DATA: This is the patient's initial encounter. Patient reports that signs and symptoms have been present for 2 months and indicates a pain score of 8/10. MEDICAL/SURGICAL HISTORY: Hypertension. Total knee replacement, right. Tonsillectomy. Hystere ctomy. Gastric bypass, Hernia repair. COMPARISON: [facility] – [place] HEAD W/O CONTRAST, 03/19/2018. . TECHNIQUE: Multiplanar, multisequence examination of the brain was performed without contrast. FINDINGS: Cerebrum: The ventricles are normal for age. There is a patent cavum septum pellucidum. No evidence of midline shift, mass lesion, hemorrhage or acute infarction. No extraaxial fluid collections are s een. The pituitary gland and suprasellar cistern are normal in configuration. White Matter: There are some mild small focal areas of increased signal in the cerebral white matter . Posterior Fossa: The cerebellum and brainstem are intact. The 4th ventricle is midline. The cerebel lopontine angle is unremarkable. The cerebellar tonsils are normal in position. Diffusion Imaging: No focal areas of restricted diffusion are seen. No evidence of acute infarction . Extracranial: The visualized portions of the orbits and paranasal sinuses are unremarkable. CONCLUSION: 1. No acute abnormality is seen. 2. Scattered mild areas of focal demyelination. These are nonspecific. They could be secondary to sm all vessel ischemic unchanged. Electronically signed by: Denilson Ernandez MD 03/19/2018 10:15 PM EDT
--- NOTE | 2018-03-20 06:05 | P.PN ---
Subjective Interval history: f/u falls. Patient has no complaints today. Oriented 3. Potassium significantly low at 2.5 will aggressively replace and repeat level today Physical Exam Vital signs: Vital Signs 03/19/18 13:43 03/19/18 14:18 03/19/18 14:38 Temperature 99.0 F 98.6 F Pulse Rate 89 75 Respiratory Rate 16 16 Blood Pressure 106/61 117/68 Pulse Oximetry 98 96 100 03/19/18 20:00 03/20/18 00:00 03/20/18 03:22 Temperature 100.9 F H 99.2 F 99 F Pulse Rate 59 L 62 67 Respiratory Rate 16 16 16 Blood Pressure 128/59 L 108/63 121/76 Pulse Oximetry 97 96 98 Intake & Output 03/19/18 03/19/18 03/20/18 06:59 18:59 06:59 Intake Total 2099 Balance 2099 Weight 54.431 kg 54.43 kg Intake: IV 2099 Maxipime Inj 2,000 MG In NS Inj 100 / 100 100 ML @ 200 mls/hr IV.SIG STAT STA Rx#:[id number] NS Inj 800 ML @ Wide Open IV. 1999 SIG .Q0M CARITO Rx#:[id number] Other: Weight On Admission 54.431 kg Narrative: GENERAL: Middle-aged white female in no acute distress. CARDIOVASCULAR: Regular rate and rhythm. No obvious murmurs to auscultation. No chest tenderness to palpation. RESPIRATORY: No obvious rhonchi or wheezing. Clear to auscultation. Breath sounds equal bilaterally. GASTROINTESTINAL: Abdomen soft, non-tender, nondistended. BS normal. MUSCULOSKELETAL: Extremities without clubbing, cyanosis, or edema. No obvious deformities. NEUROLOGICAL: Awake, alert and oriented x4. No focal neurologic deficits. Moving both upper and lower extremities spontaneously. Results - Labs CBC & Chem 7: 03/20/18 07:05 03/20/18 10:26 Laboratory Results - last 24 hr 03/19/18 03/19/18 03/19/18 14:30 14:30 14:30 WBC 8.6 RBC 4.63 Hgb 13.6 Hct 42.7 MCV 92.2 MCH 29.4 MCHC 31.9 L RDW 17.6 H Plt Count 203 MPV 8.0 Neut % (Auto) 62.8 Lymph % (Auto) 14.8 [place] % (Auto) 13.5 H Eos % (Auto) 8.4 H Baso % (Auto) 0.5 Neut # (Auto) 5.4 Lymph # (Auto) 1.3 [place] # (Auto) 1.2 H Eos # (Auto) 0.7 H Baso # (Auto) 0.0 WBC Differential . Differential Comment Auto diff final Sodium 146 H Potassium 3.3 L Chloride 114 H Carbon Dioxide 23.7 Anion Gap 8 BUN 16 Creatinine 1.19 H Estimated GFR 45 L POC Glucose Random Glucose 89 Lactic Acid 0.8 Calcium 9.1 Total Bilirubin 0.4 AST 30 ALT 38 Alkaline Phosphatase 77 Troponin I Less than 0.02 L Total Protein 6.5 Albumin 3.0 L Urine Color Urine Clarity Urine pH Ur Specific [place] Urine Protein Urine Glucose (UA) Urine Ketones Urine Occult Blood Urine Nitrate Urine Bilirubin Urine Urobilinogen Ur Leukocyte Esterase Urine RBC Urine WBC Hyaline Casts Urine Mucus Micro UA Comment Urine Culture Comments 03/19/18 03/19/18 14:37 14:50 WBC RBC Hgb Hct MCV MCH MCHC RDW Plt Count MPV Neut % (Auto) Lymph % (Auto) [place] % (Auto) Eos % (Auto) Baso % (Auto) Neut # (Auto) Lymph # (Auto) [place] # (Auto) Eos # (Auto) Baso # (Auto) WBC Differential Differential Comment Sodium Potassium Chloride Carbon Dioxide Anion Gap BUN Creatinine Estimated GFR POC Glucose 88 Random Glucose Lactic Acid Calcium Total Bilirubin AST ALT Alkaline Phosphatase Troponin I Total Protein Albumin Urine Color Yellow Urine Clarity Clear Urine pH 6.0 Ur Specific [place] 1.012 Urine Protein 30 H Urine Glucose (UA) Negative Urine Ketones Negative Urine Occult Blood Small H Urine Nitrate Negative Urine Bilirubin Negative Urine Urobilinogen Less than 2 Ur Leukocyte Esterase Negative Urine RBC 2 Urine WBC 3 Hyaline Casts 4 Urine Mucus Few H Micro UA Comment Cath-culture not ind Urine Culture Comments Cath-cult not ind - Imaging Impressions Head MRI 03/19/18 00:00 CONCLUSION: 1. No acute abnormality is seen. 2. Scattered mild areas of focal demyelination. These are nonspecific. They could be secondary to small vessel ischemic unchanged. Chest X-Ray 03/19/18 14:25 CONCLUSION: No acute cardiopulmonary disease. Head CT 03/19/18 15:24 CONCLUSION: 1. Minimal subcortical white matter small vessel ischemic changes. 2. No acute infarct, acute hemorrhage, midline shift or extra axial fluid collections. . - Procedures none Assessment and Plan - Assessment (1) Encephalopathy Code(s): G93.40 - Encephalopathy, unspecified Status: Acute (2) Gait instability Code(s): R26.81 - Unsteadiness on feet Status: Acute (3) Renal insufficiency Code(s): N28.9 - Disorder of kidney and ureter, unspecified Status: Acute - Plan 1. Encephalopathy: Transient. Resolved. H/o UTI w/ AMS, however no evidence of UTI. Possibly due to polypharmacy from multiple medications including Morphine 15mg ER, Sertraline and Temazepam. Patient states no recent med adjustment. 2. Gait Instability: w/ recurrent falls, notes she "stumbles" on her feet, denies motor weakness. CT Head w/ no acute findings, images reviewed by me. Neg BMRI. PT recommends home care. Consult Neurology for further evaluation. 3. Dehydration: TY. Creatinine 1.19, previously 0.83 on 02/03/18. U/a negative for UTI. IVF for hydration, repeat labs in am, monitor I/O. 4. Hypokalemia potassium 2.5. Monitor on telemetry. Replace with 20 M EQ IV potassium and 60 M EQ p.o. and repeat BMP today and morning. Check magnesium Nursing to reconcile home meds DVT Prophylaxis: SCD/Teds
[2018-03-20 07:25] LABS: Baso % (Auto) 0.4 % (0.0-2.0); Eos # (Auto) 0.4 th/mm3 (0.0-0.4); Eos % (Auto) 6.2 % (0.0-4.0); Hematocrit 37.1 % (35.0-46.0); Lymph # (Auto) 1.1 th/mm3 (1.0-4.8); Lymph % (Auto) 15.2 % (9.0-44.0); Mean Corpuscular HGB Conc 32.4 % (32.0-36.0); Mean Corpuscular Volume 92.5 fL (80.0-100.0); Mean Platelet Volume 7.7 fL (7.0-11.0); Mono # (Auto) 0.6 th/mm3 (0.0-0.9); Mono % (Auto) 9.2 % (0.0-8.0); Neut # (Auto) 4.8 th/mm3 (1.8-7.7); Platelet Count 177 th/mm3 (150-450); Red Blood Count 4.01 mil/mm3 (4.00-5.30); Red Cell Distribution Width 16.9 % (11.6-17.2); White Blood Count 6.9 th/mm3 (4.0-11.0)
[2018-03-20 08:22] LABS: Alanine Aminotransferase 28 U/L (10-53); Albumin 2.4 g/dL (3.4-5.0); Alkaline Phosphatase 66 U/L (45-117); Anion Gap 11 meq/L (5-15); Aspartate Aminotransferase 22 U/L (15-37); Blood Urea Nitrogen 12 mg/dL (7-18); Chloride 117 meq/L (98-107); Glomerular Filtration Rate 84 mL/min (>89); Glucose,Random 81 mg/dL (74-106); Sodium 148 meq/L (136-145); Thyroid Stimulating Hormone 0.046 uIU/mL (0.358-3.740); Total Protein 5.4 g/dL (6.4-8.2); Vitamin B12 610 pg/mL (193-986)
[2018-03-20 08:27] LABS: Creatine Kinase 70 U/L (26-192); Potassium 2.5 meq/L (3.5-5.1)
[2018-03-20] MEDS ORDERED: Potassium Chlor 20 mEq Premix 20 MEQ/100 ML PIGGYBACK IV.SIG ONE (08:31)
[2018-03-20] MEDS ORDERED: KCL 20 mEq/NACL 0.45% Inj 1,000 ML IV.CONT SCH (08:45)
[2018-03-20 09:48] LABS: Amphetamine Screen,Urine Neg (Neg); Barbiturate Screen,Urine Neg (Neg); Cannabinoid Screen,Urine Neg (Neg); Cocaine Screen,Urine Neg (Neg)
[2018-03-20 09:52] LABS: Opiate Screen,Urine Pos (Neg)
--- NOTE | 2018-03-20 10:00 | MB ---
cc: Santi Vazquez MD DATE: 03/20/2018 HISTORY OF PRESENT ILLNESS: She is a 67-year-old right-handed woman with a history of gastric bypass, hypothyroidism, remote uterine cancer. She has been unsteady on her feet only when she gets sick, like she if has a UTI. She has fallen 3 times in the last 3 months, but she is not dizzy every day. No vertigo. One leg is slightly longer than the other due to her knee replacement, she tells me. She also had some hallucinations visually where she sees some lines going across her vision if she has a UTI and that did occur yesterday. No sudden hearing loss, though she has some mild chronic hearing loss. No ringing in the ears. No asymmetrical weakness or numbness. She denies any chest pain or palpitation. She does have some chronic headaches. SOCIAL HISTORY: She is not a smoker or drinker and lives with her daughter. FAMILY HISTORY: Negative cancer, seize and stroke. REVIEW OF SYSTEMS: She denies any history of hypertension, diabetes, hypercholesterolemia, SD, stent, angioplasty, AFib, Coumadin, CABG; renal, hepatic or pulmonary disease; lupus, ulcer, seizure or stroke. MEDICATIONS AT HOME: 1. Omeprazole. 2. Thyroid medicine. 3. Zoloft 100 a day p.r.n. 4. Temazepam p.r.n. 5. Possibly memantine, unconfirmed. 6. Morphine, unconfirmed. PHYSICAL EXAMINATION: VITAL SIGNS: T-max 100.9, 59-68, 114/69, 68. NECK: There were no carotid bruits. HEART: Regular rhythm. I did not detect a murmur. NEUROLOGIC: Pupils are equal. Visual johansen are full. Extraocular movement intact without nystagmus. Face is symmetric with normal sensation. Tongue was midline. There is no drift. She had normal strength in upper and lower extremities bilaterally. DTRs are trace to absent throughout. Toes are downgoing bilaterally. There is no ankle clonus. Tone was normal throughout. Pinprick was intact in the bilateral upper extremities, bilateral face and the bottom of her feet, but she said she could not feel pinprick from the bottom of her feet all the way up to her hips. Pinprick was intact perivaginally and right at the inguinal region. She is not ataxic on [id number] or [id number]. She actually has a normal gait with negative Romberg and fair tandem. She was awake and alert. Speech was fluent. She was not aphasic. She knew the month and the year. Hallpike maneuver was negative bilaterally LABORATORY DATA: CBC is normal. UA here is negative. Basic metabolic profile: Sodium was 146, potassium 3.3, creatinine 1.1. LFTs are normal. B12 normal. Folate normal. TSH slightly low. She had a urinary tract infection in January of this year. IMAGING STUDIES: She had an MRI of her brain done yesterday, normal review of the films. The brain does look normal. Diffusion images negative. It looks like she has a small amount of fluid in the left mastoid, not very much. IMPRESSION: I thought she looked well neurologically at this time. We will check some standing blood pressures. Otherwise, she could be discharged neurologically and I could follow up with her in the office. I do not see anything acute. She says the 3 fall she has had, one time she was climbing over a baby barrier, and other times she had urinary tract infections. MD MAIKEL Szymanski/CARIE , 09:24 AM , 09:43 AM
--- NOTE | 2018-03-20 10:36 | P.DCO ---
- Physical Therapy Order: Evaluate and treat, Improve ambulation, Strength and gait training - Certification I have seen patient Cate Calderón on 03/20/18. My clinical findings support the need for the requested home health care services because: Deconditioned with increased weakness I certify that my clinical findings support that this patient is homebound because: Unsafe to leave home unassisted, Need for psychosocial assistance
[2018-03-20 10:40] LABS: Hemoglobin A1c 5.3 % (4.3-6.0)
[2018-03-20 11:23] LABS: Calcium 8.3 mg/dL (8.5-10.1); Carbon Dioxide 21.7 meq/L (21.0-32.0)
[2018-03-20 11:29] LABS: Potassium 2.9 meq/L (3.5-5.1)
[2018-03-20 11:36] LABS: Free T4 (Free Thyroxine) 0.89 ng/dL (0.76-1.46); Triiodothyronine (T3) Free 2.27 pg/mL (2.18-3.98)
[2018-03-20] MEDS ORDERED: Morphine Sulfate 15 MG SR Tablet PO SCH ×2 (13:00→21:46)
[2018-03-20] MEDS ORDERED: Temazepam 15 MG Capsule PO PRN (13:48)
--- NOTE | 2018-03-20 14:58 | ECG ---
Date Performed: 03/19/2018 Time Performed: 18:01:58 PTAGE: 67 years EKG: Sinus rhythm BORDERLINE LEFT AXIS DEVIATION LOW QRS VOLTAGE IN PRECORDIAL LEADS NONSPECIFIC T-WAVE ABNORMALITY Si nce previous tracing, no significant change noted BORDERLINE ECG PREVIOUS TRACING : 02/03/2018 20.36 DOCTOR: Kevin Acosta Interpretating Date/Time 03/20/2018 14:56:37
[2018-03-20] MEDS: Sucralfate 1 GM Tablet PO SCH (22:18)
[2018-03-20] MEDS: Sod Chloride 0.9% Inj 1,000 ML IV.CONT SCH (23:06)
[2018-03-21 05:23] LABS: Anion Gap 9 meq/L (5-15); Blood Urea Nitrogen 9 mg/dL (7-18); Calcium 8.4 mg/dL (8.5-10.1); Carbon Dioxide 20.5 meq/L (21.0-32.0); Chloride 118 meq/L (98-107); Glomerular Filtration Rate Greater Than 89 mL/min (>89); Glucose,Random 81 mg/dL (74-106); Magnesium 2.1 mg/dL (1.5-2.5); Potassium 3.1 meq/L (3.5-5.1); Sodium 147 meq/L (136-145)
[2018-03-21] MEDS ORDERED: Levothyroxine 100 MCG Tablet PO SCH (06:00)
[2018-03-21] MEDS: Sucralfate 1 GM Tablet PO SCH (08:40)
[2018-03-21] MEDS ORDERED: Sertraline 100 MG Tablet PO SCH (09:00)
[2018-03-21] MEDS ORDERED: Pantoprazole Sodium 20 MG DR Tablet PO SCH (09:00)
--- NOTE | 2018-03-21 11:33 | P.DS ---
Date of admission: 03/19/18 18:59 Primary care physician: UNKNOWN Brief History from admission: This is a 67-year-old female with a PMH of Chronic Back Pain and Recurrent UTI who was brought to the ER by Daughter secondary to gait instability and intermittent dizziness. Daughter stated pt usually has had previous episodes of AMS w/ gait instability due to UTI. On arrival, pt noted to be slightly confuse, not answering questions appropriately, currently normal mental status. Per patient, she's had worsening gait w/ multiple falls in the last 4 months. Denies head trauma or LOC. Today states she "stumbled on my feet" and had near fall. 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 On arrival, BP 117/68, HR 75, O2 sat 96% on RA, Afebrile. CBC essentially unremarkable. K+ 3.3. Creatinine 1.19, previously 0.83 on 02/03. UA negative for UTI. CXR with no acute findings. CT Head with no acute infarct, minimal subcortical white small vessel ischemic changes. DS: Diagnosis - Discharge Diagnosis (1) Gait instability Status: Acute (2) Renal insufficiency Status: Acute (3) Encephalopathy Status: Acute DS: Medications - Discharge Medications Prescriptions: levothyroxine [Synthroid] 100 mcg PO DAILY@0600 #30 tab DS: Summary Hospital Course: 1. Encephalopathy: Transient. Resolved. H/o UTI w/ AMS, however no evidence of UTI. Possibly due to polypharmacy from multiple medications including Morphine 15mg ER, Sertraline and Temazepam. Patient states no recent med adjustment. 2. Gait Instability: w/ recurrent falls, notes she "stumbles" on her feet, denies motor weakness. CT Head w/ no acute findings, images reviewed by me. Neg BMRI. PT recommends home care. Consulted Neurology for further evaluation. 3. Dehydration: TY. Creatinine 1.19, previously 0.83 on 02/03/18. U/a negative for UTI. IVF for hydration, repeat labs in am, monitor I/O. Likely etiology for presenting symptoms of gait instability and dizziness which are resolved 4. Hypokalemia. Replace with 60 M EQ p.o. in the morning. 5. Hypothyroidism. TSH low will adjust synthroid and rpt TSh 6weeks DVT proph with SCD - Time Spent with Patient Total time spent providing and/or coordinating discharge services: - Quality: VTE Deep Vein Thrombosis/Pulmonary Embolism Present on Admission: No Exam Vital signs: Vital Signs 03/20/18 11:45 03/20/18 16:00 03/20/18 19:24 Temperature 98.8 F 98.6 F 98.5 F Pulse Rate 71 68 83 Respiratory Rate 16 16 16 Blood Pressure 126/60 141/71 H 117/60 Pulse Oximetry 97 96 96 03/20/18 22:48 03/20/18 23:19 03/21/18 00:18 Temperature 98.6 F Pulse Rate 70 64 Respiratory Rate 16 16 Blood Pressure 124/59 L Pulse Oximetry 97 03/21/18 03:35 03/21/18 08:29 03/21/18 08:30 Temperature 98.4 F 98.9 F Pulse Rate 68 70 83 Respiratory Rate 16 16 Blood Pressure 118/60 140/73 144/82 H Pulse Oximetry 96 97 03/21/18 08:31 Temperature 98.9 F Pulse Rate 70 Respiratory Rate 16 Blood Pressure 140/73 Pulse Oximetry 97 Intake & Output 03/20/18 03/21/18 03/21/18 18:59 06:59 18:59 Intake Total 1110 / 1110 0 / 0 Balance 1110 / 1110 0 / 0 Intake: IV 1110 / 1110 0 / 0 KCl 20 mEq Premix Inj 20 meq In 110 / 110 100 ml @ 50 mls/hr IV.SIG ONCE ONE Rx#:[id number] Other: # Voids 3 Narrative: GENERAL: Middle-aged white female in no acute distress. CARDIOVASCULAR: Regular rate and rhythm. No obvious murmurs to auscultation. No chest tenderness to palpation. RESPIRATORY: No obvious rhonchi or wheezing. Clear to auscultation. Breath sounds equal bilaterally. GASTROINTESTINAL: Abdomen soft, non-tender, nondistended. BS normal. MUSCULOSKELETAL: Extremities without clubbing, cyanosis, or edema. No obvious deformities. NEUROLOGICAL: Awake, alert and oriented x4. No focal neurologic deficits. Moving both upper and lower extremities spontaneously. Results Procedures completed during hospitalization: none Labs on day of discharge: Labs from last 24 hours 03/21/18 03/20/18 04:35 10:09 Sodium 147 H Potassium 3.1 L Chloride 118 H Carbon Dioxide 20.5 L Anion Gap 9 BUN 9 Creatinine 0.58 Estimated GFR Greater than 89 Random Glucose 81 Calcium 8.4 L Magnesium 2.1 Free T4 0.89 Free T3 2.27 Preliminary micro results at discharge 03/19/18 14:30 Aerobic Blood Culture - Preliminary Blood - Peripheral No growth in 2 days Anaerobic Blood Culture - Preliminary No growth in 2 days 03/19/18 14:35 Aerobic Blood Culture - Preliminary Blood - Peripheral No growth in 2 days Anaerobic Blood Culture - Preliminary No growth in 2 days - Impressions ITS Impressions Head MRI 03/19/18 00:00 CONCLUSION: 1. No acute abnormality is seen. 2. Scattered mild areas of focal demyelination. These are nonspecific. They could be secondary to small vessel ischemic unchanged. Chest X-Ray 03/19/18 14:25 CONCLUSION: No acute cardiopulmonary disease. Head CT 03/19/18 15:24 CONCLUSION: 1. Minimal subcortical white matter small vessel ischemic changes. 2. No acute infarct, acute hemorrhage, midline shift or extra axial fluid collections. . Discharge Plan - Discharge Disposition Patient Disposition: /Home Health Service - Discharge Condition Condition: Stable - Discharge Order Discharge Orders: Discharge Order (Routine); Ordered 03/21/18 Ordered By: Young Chavez - Physicians Team Primary Care Provider: UNKNOWN, Attending Provider: Young Chavez Other Providers: Santi Man MD
== END 2018-03-21 15:57 | disposition home health service (06) ==
LOC: NEDA 13:38 → NEPFCDU 13:38 → NEPC 13:38 → NEPFCDU 21:25
PROVIDERS: ADMIT Internal Medicine; ATTEND Internal Medicine